=== PATIENT | female | born 1955 | race Caucasian/White ===

== ENCOUNTER 2021-02-22 10:02 | Emergency (ER) | payer OTHER, MEDICARE, SELFPAY ==
[2021-02-22] VITALS (8 sets, daily range): BP systolic 131–144; BP diastolic 77–78; PULSE 73–87; RESP 16; TEMP 36.4; O2SAT 92–94; BMI 41.6
--- NOTE | 2021-02-22 10:05 | ED_ITS ---
HPI - General Adult General Chief complaint: Nausea/Vomiting/Diarrhea Stated complaint: Sick for over a week, Weak, throwing up. Time Seen by Provider: 02/22/21 10:05 Source: patient Mode of arrival: Ambulatory Limitations: no limitations History of Present Illness HPI narrative: Patient is a 65-year-old female here for evaluation of multiple symptoms to include not feeling well, feeling sick for approximately 1 week, coughing, nausea, in week. She denies urinary symptoms. Has tried some Mucinex at home. She states that ?everyone? at home around her has been sick that her seems to be taking longer to get better. She states that the vomiting is sometimes associated with coughing however it also happens by itself. She is currently feeling nauseous. Feels like her abdomen is sore but she thinks that is because of all of the vomiting. No rashes. No sick contacts. Related Data Previous Rx's Medication Instructions Recorded ondansetron 4 mg PO Q6H PRN #10 tab 02/22/21 Allergies Allergy/AdvReac Type Severity Reaction Status Date / Time Sulfa (Sulfonamide Allergy Rash Verified 02/22/21 10:33 Antibiotics) Review of Systems Constitutional Constitutional: Reports chills, Reports fever(s) and Reports malaise Eyes Eyes: Denies change in vision ENT Ears, Nose, Mouth, and Throat: Denies sore throat Cardiovascular Cardiovascular: Denies chest pain Respiratory Respiratory: Reports cough and Reports pain with cough Gastrointestinal Gastrointestinal: Reports abdominal pain, Denies change in bowel habits, Reports nausea and Reports vomiting Genitourinary Genitourinary: Denies dysuria Genitourinary: Denies dysuria Musculoskeletal Musculoskeletal: Denies myalgias Integumentary/Breasts Skin/Breast: Denies lesions and Denies rash Neurologic Neurologic: Denies behavioral changes Psychiatric Psychiatric: Denies anxiety and Denies behavioral changes Patient History Medical History Hypertension Social History marital status: lives independently: Yes Smoking Status: Never smoker Exam Initial Vital Signs Initial Vital Signs: Vital Signs Temperature 97.6 F 02/22/21 10:20 Pulse Rate 87 02/22/21 10:20 Respiratory Rate 16 02/22/21 10:20 Blood Pressure 131/77 02/22/21 10:20 Pulse Oximetry 94 02/22/21 10:20 Const General: cooperative and comfortable Limitations: mental status not altered HENMT Head: normal to inspection and normocephalic Resp Effort & Inspection: normal respiratory effort Auscultation: clear to auscultation bilaterally Cardio Rate: regular rate Rhythm: regular rhythm GI Inspection: non-distended Skin Lesions: no lesions Rashes: no rashes Neuro General: patient alert, patient awake and patient oriented x3 Cognition: normal cognition Speech: speech normal Gait: normal gait Extrem General: normal to inspection and capillary refill normal Psych Appearance: grossly normal and well kempt Course Orders Ordered: ED Orders 02/22/21 10:17 COVID19 -Nasal swab/Pre-Proc Stat Complete Blood Count AUTO DIFF Stat Comprehensive Metabolic Panel Stat Influenza A & B (PCR) Stat Lipase Stat 02/22/21 10:23 XR chest 1V Stat Discontinued Medications Sodium Chloride (Normal Saline 0.9%) 1,000 mls @ 1,000 mls/hr IV BOLUS ONE Stop: 02/22/21 11:21 Last Admin: 02/22/21 10:34 Dose: 1,000 mls/hr Documented by: LIDIA Ondansetron HCl (Ondansetron 4 Mg/2 Ml Inj) 4 mg IV NOW ONE Stop: 02/22/21 10:23 Last Admin: 02/22/21 10:34 Dose: 4 mg Documented by: LIDIA Vital Signs Vital signs: Vital Signs - 8 hr 02/22/21 10:20 02/22/21 10:26 02/22/21 10:30 Temperature 97.6 F Pulse Rate 87 77 80 Respiratory Rate 16 Blood Pressure 131/77 Pulse Oximetry 94 92 92 Medical Decision Making Lab Data Lab results reviewed: Yes I reviewed the patient's lab results. Result diagrams: 02/22/21 10:17 02/22/21 10:17 Labs: Lab Results 02/22/21 02/22/21 02/22/21 Range/Units 09:55 10:17 10:17 WBC 4.0 L (4.5-11.0) X10^3/uL RBC 4.26 (4.0-5.2) X10^6/uL Hgb 12.0 (12.0-16.0) g/dL Hct 35.0 L (36-46) % MCV 82.3 (80-100) fL MCH 28.1 (26-34) PG MCHC 34.2 (30-36) % RDW 14.0 (11.6-14.8) % Plt Count 155 (150-400) X10^3/uL Neut % (Auto) 74.3 (50-75) % Lymph % (Auto) 12.0 L (25-40) % [place] % (Auto) 13.5 (3-14) % Eos % (Auto) 0.0 L (2-4) % Baso % (Auto) 0.2 (0-2) % Neut # (Auto) 3000 (2387-1444) /uL Lymph # (Auto) 500 L (8038-2819) /uL [place] # (Auto) 500 (0-900) /uL Eos # (Auto) 0 (0-450) /uL Baso # (Auto) 0 (0-100) /uL Sodium 132 L (137-145) mmol/L Potassium 3.9 (3.4-5.1) mmol/L Chloride 98 (98-107) mmol/L Carbon Dioxide 26 (22-32) mmol/L BUN 11 (7-17) mg/dL Creatinine 0.79 (0.52-1.04) mg/dL Estimated GFR > 60.0 (>60) mL/min BUN/Creatinine Ratio 13.9 (6-22) Glucose 111 H (80-110) mg/dL Calcium 8.9 (8.4-10.2) mg/dL Total Bilirubin 0.9 (0.2-1.3) mg/dL AST 51 H (14-36) IU/L ALT 50 H (<35) IU/L Alkaline Phosphatase 81 (38-126) U/L Total Protein 7.1 (6.3-8.2) g/dL Albumin 3.8 (3.5-5.0) g/dL Globulin 3.3 (1.7-4.1) g/dL Albumin/Globulin Ratio 1.2 (1.0-2.8) Lipase 91 (23-300) U/L SARS-CoV-2 (PCR) Cancelled Influenza A (RT-PCR) (NEGATIVE) Influenza B (RT-PCR) (NEGATIVE) 02/22/21 Range/Units 10:17 WBC (4.5-11.0) X10^3/uL RBC (4.0-5.2) X10^6/uL Hgb (12.0-16.0) g/dL Hct (36-46) % MCV (80-100) fL MCH (26-34) PG MCHC (30-36) % RDW (11.6-14.8) % Plt Count (150-400) X10^3/uL Neut % (Auto) (50-75) % Lymph % (Auto) (25-40) % [place] % (Auto) (3-14) % Eos % (Auto) (2-4) % Baso % (Auto) (0-2) % Neut # (Auto) (3892-0025) /uL Lymph # (Auto) (4832-3553) /uL [place] # (Auto) (0-900) /uL Eos # (Auto) (0-450) /uL Baso # (Auto) (0-100) /uL Sodium (137-145) mmol/L Potassium (3.4-5.1) mmol/L Chloride (98-107) mmol/L Carbon Dioxide (22-32) mmol/L BUN (7-17) mg/dL Creatinine (0.52-1.04) mg/dL Estimated GFR (>60) mL/min BUN/Creatinine Ratio (6-22) Glucose (80-110) mg/dL Calcium (8.4-10.2) mg/dL Total Bilirubin (0.2-1.3) mg/dL AST (14-36) IU/L ALT (<35) IU/L Alkaline Phosphatase (38-126) U/L Total Protein (6.3-8.2) g/dL Albumin (3.5-5.0) g/dL Globulin (1.7-4.1) g/dL Albumin/Globulin Ratio (1.0-2.8) Lipase (23-300) U/L SARS-CoV-2 (PCR) Positive H Influenza A (RT-PCR) Flu a negative (NEGATIVE) Influenza B (RT-PCR) Flu b negative (NEGATIVE) Imaging Data Chest x-ray: Radiologist's Impression: [address] [id number] ReportSigned Patient: Lynne Conner#: [id number]: 3Acct:[id number]/Sex: 65 / FDate of Service: 02/22/21Loc: EDAccession Number: [id number] Procedure: XR chest 1V Ordering Provider: Zachary Leonardo D.O. PROCEDURE: XR CHEST 1V INDICATIONS: Cough, chills, fever, eval for pneumonia TECHNIQUE: One view of the chest was acquired. COMPARISON: None. FINDINGS: Surgical changes and devices: None. Lungs and pleura: Bilateral patchy airspace opacity with a lower lobe predominance. No pleural effusions or pneumothorax. Mediastinum: Mediastinal contours appear normal. Heart size is normal. Bones and chest wall: No suspicious bony lesions. Overlying soft tissues appear unremarkable. IMPRESSION: Bilateral patchy airspace opacity. Findings most compatible with atypical pneumonia given the clinical history of fever and cough. COVID-19 could have this appearance. Pulmonary edema is felt to be less likely. Dictated by: Rogelio Plata M.D. on 02/22/2021 at 10:45 Approved by: Rogelio Plata M.D. on 02/22/2021 at 10:[address] [facility] Narrative Medical decision making narrative: Patient is not in respiratory distress. She is afebrile. Chest x-ray shows atypical pneumonia versus COVID. Her flu is negative however her COVID test is positive. She is not hypoxic. I did discuss with her this diagnosis. We did discuss the current guidelines about quarantine herself and also the other individuals in her family. No indication for antibiotics. She does have a home pulse ox. She was given return precautions and follow-up instructions. She expressed understanding and agreement. Discharge Plan Departure Patient Disposition: Home Clinical Impression: COVID-19, Vomiting Instructions: DI for COVID-19 (Suspected or Confirmed ), Coronavirus Disease 20 19 Activity Restrictions/Additional Instructions: You can take Tylenol for any fevers. He use your pulse ox at home and if you develop worsening shortness of breath please return to the emergency department. He returned cord chain yourself for at least the next 10-14 days and greater than 24 hours after the resolution of all of your symptoms. Your family member should quarantine themselves as well. Contact her primary provider for follow- up. Prescriptions: New ondansetron 4 mg tablet,disintegrating 4 mg PO Q6H PRN (Reason: nausea and vomiting) Qty: 10 RF: 0
--- NOTE | 2021-02-22 10:23 | DI.RAD.S_ITS ---
PROCEDURE: XR CHEST 1V INDICATIONS: Cough, chills, fever, eval for pneumonia TECHNIQUE: One view of the chest was acquired. COMPARISON: None. FINDINGS: Surgical changes and devices: None. Lungs and pleura: Bilateral patchy airspace opacity with a lower lobe predominance. No pleural effusions or pneumothorax. Mediastinum: Mediastinal contours appear normal. Heart size is normal. Bones and chest wall: No suspicious bony lesions. Overlying soft tissues appear unremarkable. IMPRESSION: Bilateral patchy airspace opacity. Findings most compatible with atypical pneumonia given the clinical history of fever and cough. COVID-19 could have this appearance. Pulmonary edema is felt to be less likely. Dictated by: Rogelio Plata M.D. on 02/22/2021 at 10:45 Approved by: Rogelio Plata M.D. on 02/22/2021 at 10:46
[2021-02-22] MEDS: ONDANSETRON 4 MG/2 ML INJ IV (10:34)
[2021-02-22] MEDS: SODIUM CHLORIDE 0.9% 1,000 ML 1000 ML IV (10:34)
[2021-02-22 10:35] LABS: Add Manual Diff / Slide Review NO; Basophils Absolute Auto 0 /uL (0-100); Basophils Percent Auto 0.2 % (0-2); Eosinophils Absolute Auto 0 /uL (0-450); Lymphocytes Absolute Auto 500 /uL (1100-4500); Mean Corpuscular HGB Conc 34.2 % (30-36); Mean Corpuscular Hemoglobin 28.1 PG (26-34); Mean Corpuscular Volume 82.3 fL (80-100); Monocytes Absolute Auto 500 /uL (0-900); Monocytes Percent Auto 13.5 % (3-14); Neutrophils Absolute Auto 3000 /uL (1500-7000); Neutrophils Percent Auto 74.3 % (50-75); Platelet Count 155 X10^3/uL (150-400); Red Blood Cell Count 4.26 X10^6/uL (4.0-5.2)
[2021-02-22 10:55] LABS: Alanine Aminotransferase 50 IU/L (<35); Albumin 3.8 g/dL (3.5-5.0); Albumin Globulin Ratio 1.2 (1.0-2.8); Alkaline Phosphatase 81 U/L (38-126); Aspartate Aminotransferase 51 IU/L (14-36); BUN Creatinine Ratio 13.9 (6-22); Bilirubin Total 0.9 mg/dL (0.2-1.3); Blood Urea Nitrogen 11 mg/dL (7-17); Calcium 8.9 mg/dL (8.4-10.2); Carbon Dioxide 26 mmol/L (22-32); Chloride 98 mmol/L (98-107); Estimated Glomerular Filt Rate > 60.0 mL/min (>60); Globulin 3.3 g/dL (1.7-4.1); Glucose 111 mg/dL (80-110); HEMOLYSIS < 15 (0-50); Lipase 91 U/L (23-300); Potassium 3.9 mmol/L (3.4-5.1); Sodium 132 mmol/L (137-145); Total Protein 7.1 g/dL (6.3-8.2)
[2021-02-22 11:34] LABS: Influenza A - CEPHEID Flu A NEGATIVE (NEGATIVE); Influenza B - CEPHEID Flu B NEGATIVE (NEGATIVE)
[2021-02-22 11:43] LABS: COVID19 -Nasal RAPID POSITIVE (Negative)
== END 2021-02-22 12:48 | disposition home or self-care (01) ==
PROVIDERS: Emergency Provider Emergency Medicine; PCP Physician Assistant Medical
DX: U07.1 COVID-19 (principal); R11.2 Nausea with vomiting, unspecified; R05 Cough; R10.9 Unspecified abdominal pain
CPT/HCPCS: 36415; 71045; 80053; 83690; 85025; 87502; 87635; 96361; 96374; 99284; C9803; J2405